=== PATIENT | female | born 1970 | race Asian ===

== ENCOUNTER 2018-12-06 10:23 | Day surgery (SDC) | payer OTHER ==
[2018-11-30 10:33] VITALS: BMI 24.0
--- NOTE | 2018-11-30 16:24 | HP ---
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 She has had mutiple left breast bxs showing papillomas.2012 , fibroadenoma 2013 and PASH 2017. She was found to have central enhancement in left breast on MRI 07/2018 and underwent 2 MRI core bxs showing central LCIS and 2:00 papilloma and ADH History Source: Patient Limitations to Obtaining History: No Limitations - Past Medical History ...LMP: 10/31/18 ...: No Endocrine: Yes: Diabetes Mellitus (type 1 on insulin pump), Other (Hashimotos thyroiditis) - Past Surgical History Past Surgical History: Yes: Mastectomy (right 1987 at age 16 for sarcoma reconstruction implant 2003 mutiple left breast bxs papillomas and fibroadenoma) - Smoking History Smoking history: Never smoked Have you smoked in the past 12 months: No - Alcohol/Substance Use Hx Alcohol Use: Yes (SOCIALLY) Home Medications - Allergies Allergies/Adverse Reactions: Allergies Allergy/AdvReac Type Severity Reaction Status Date / Time No Known Allergies Allergy Verified 11/30/18 10:17 - Home Medications Home Medications: Ambulatory Orders Insulin Pump [Insulin Pump - (Nf)] 1 each IV DAILY 11/30/18 Levothyroxine [Synthroid -] 75 mcg PO DAILY 11/30/18 Loratadine [Claritin] 10 mg PO DAILY PRN 11/30/18 Losartan Potassium 25 mg PO DAILY 11/30/18 Family Disease History - Family Disease History Family Disease History: CA: Grandparent (mat GM pancreatic ca 86) Other Family History: pat aunt CRC 60's. mat aunt breast ca 49. mat uncle one with renal cell and the other leukemia Physical Examination Constitutional: Yes: Well Nourished Breast(s): Yes: Other ( obvious right mastectomy with nipple reconstruction and scarring no recurrence or denopathy, left breast nodularity and recent scarring from core bxs. 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
[2018-12-06] MEDS ORDERED: ACETAMINOPHEN 325 MG TABLET (FP) PO PRN (15:37)
[2018-12-06] MEDS ORDERED: ONDANSETRON 4 MG/2 ML VIAL IVPUSH PRN ×2 (15:37→17:13)
[2018-12-06] MEDS ORDERED: oxyCODONE HCL 5 MG TABLET PO PRN (15:37)
[2018-12-06] MEDS ORDERED: LACTATED RINGERS SOLUTION 1,000 ML IV SCH (15:45)
[2018-12-06] MEDS ORDERED: ceFAZolin SODIUM 1 GM VIAL ONE (15:59)
[2018-12-06] MEDS ORDERED: DEXAMETHASONE SOD PHOSPHATE 4 MG/1 ML VIAL ONE (16:10)
[2018-12-06] MEDS ORDERED: ONDANSETRON 4 MG/2 ML VIAL ONE (16:10)
[2018-12-06] MEDS ORDERED: BUPIVACAINE HCL 0.25% 125 MG/50 ML VIAL ONE (16:38)
[2018-12-06] MEDS ORDERED: GUM MASTIC/STORAX/MSAL/ALCOHOL 1 DRP DROPSBTL MC ONE (16:50)
[2018-12-06] MEDS ORDERED: BUPIVACAINE HCL/PF 0.25% (2.5MG/ML) 10 ML VIAL IJ ONE (16:58)
[2018-12-06] MEDS ORDERED: KETOROLAC TROMETHAMINE 30 MG/1 ML VIAL IVPUSH PRN (17:13)
[2018-12-06] MEDS ORDERED: DEXTROSE 5%-0.45% SALINE 1,000 ML IV SCH (17:15)
[2018-12-06] MEDS ORDERED: KETOROLAC TROMETHAMINE 30 MG/1 ML VIAL ONE (17:40)
[2018-12-06 18:13] VITALS: TEMP 98.1
[2018-12-06 18:59] VITALS: BP 140/76; PULSE 78
--- NOTE | 2018-12-06 19:18 | OP ---
DATE OF OPERATION: 12/06/2018 PREOPERATIVE DIAGNOSIS: Left breast central lobular carcinoma in situ and upper outer quadrant atypical duct hyperplasia. POSTOPERATIVE DIAGNOSIS: Left breast central lobular carcinoma in situ and upper outer quadrant atypical duct hyperplasia. Await permanent section. PROCEDURE: Excisional biopsy with needle localizations x2 in the left breast central and upper outer quadrants. ANESTHESIA: General laryngeal mask airway anesthesia. PRIMARY SURGEON: Brigid Landers MD ALTERNATIVE DISPUTE RESOLUTION MEDIATOR: DAVEY Payne There were no complications. Briefly, the patient is a 48-year-old, nulliparous, premenopausal female of [place] descent with a family history with a maternal aunt who had breast cancer in her 40s. She has a maternal grandmother who had pancreatic cancer and at age 86, maternal uncle from renal cell carcinoma, and another maternal uncle from leukemia. The patient herself developed a right chest wall sarcoma at age 16, requiring a mastectomy and later had back sizer and implant reconstruction in 2003. She has had multiple left breast biopsies for fibrocystic change and has had papillomatosis, fibroadenomas, pseudoangiomatous stromal hyperplasia. She most recently had an MRI and underwent MRI-guided core biopsies at [facility] on October 18, 2018, for a left breast central and 2 o'clock region of enhancement and the central biopsy showed LCIS, the upper outer quadrant area showed a papilloma with atypia. We had the slides reviewed, which confirmed the diagnosis. The patient came in for consultation and wants to undergo prophylactic nipple-sparing mastectomy on the left side. I spoke to the patient at length and, given this recent diagnosis of LCIS and atypia, I advised excision of these areas prior to any prophylactic surgery to prevent any unnecessary marlon evaluation. The patient agreed and comes in today for the left breast excisional biopsies. The patient was brought in through ambulatory surgery on December 06, 2018, and underwent needle localizations of the Infinity as well as hourglass clip in the left breast. She was brought to the holding area. In the holding area, site verification was made and informed consent was obtained. She was brought in to the operating room and laid on the OR table in a supine position. Venodynes were placed on the lower extremities prior to induction. She received general laryngeal mask airway anesthesia. She was given 1 g of Ancef prior to incision. The left breast was sterilely prepped and draped in the usual fashion. Timeout was performed. Incision was made around the periareolar region of the left breast nipple-areolar complex. Dissection was undertaken around the needle localization centrally in the left breast and the tissue was completely excised around this lesion, taking more tissue towards the lateral and upper aspect to get the hourglass clip within the same excision specimen. The specimen was oriented with a long lateral and short superior suture and specimen radiograph showed removal of the Infinity and hourglass clip. At this point, the separate needle localization towards the upper outer aspect was excised with the S-shaped clip, which had been localized and this tissue was removed with a wire in the middle of the specimen and again specimen radiograph showed removal of the S clip and the specimen was oriented with a long lateral and short superior suture and the specimen was placed in formalin, sent to Pathology. Hemostasis was achieved using electrocautery. The breast parenchyma was reapproximated using 2-0 plain suture. The skin was closed using interrupted 3-0 deep dermal Vicryl suture and a running 4-0 subcuticular Biosyn suture. Mastisol, Steri-Strips applied over the wound with a compressive dressing placed over this. She was placed in a surgical bra postoperatively. The patient had the laryngeal mask airway tube removed at the end of the case, was brought to the post-anesthesia care in stable condition. She will be recovered and discharged home the same day. All sponge and needle counts were correct at the end of the case. Estimated blood loss was minimal. BRIGID LANDERS M.D. [id number]
--- NOTE | 2018-12-12 14:51 | PATH ---
Surgical Pathology Report Patient Name: KATHY VASQUEZ [facility]. Rec. #: [id number] /Age/Gender: 1970 (Age: 48) / F Account: [id number] Location[facility] Taken: 12/06/2018 Received: 12/06/2018 Reported: 12/12/2018 Physicians: Durga Landers M.D. Specimen(s) Received A: LEFT BREAST CENTRAL EXCISION B: LEFT BREAST 1:00 EXCISION Clinical History Previous core biopsies: Central-LCIS, 1:00-ADH Final Diagnosis A. Breast, left, Central, excision: Ductal carcinoma in situ (DCIS), micropapillary, papillary, flat and cribriform type, high nuclear grade with moderate necrosis and associated calcifications. (See note). DCIS is present in four of nine slides (4/9), with the largest contiguous focus of DCIS measuring 9 mm in greatest dimension. DCIS extends to the superior margin. Lobular carcinoma in situ (LCIS), classical type. Extensive sclerosing adenosis, involved by DCIS and LCIS. Remaining breast tissue shows INTRADUCTAL PAPILLOMA, atypical ductal hyperplasia (ADH), flat Epithelial atypia (FEA), usual ductal hyperplasia (UDH), columnar cell change, cystic apocrine metaplasia and associated calcifications. Prior biopsy site changes are present. Pathologic stage (pTNM):ptis (Dcis) pNx. see also DCIS case summary below. Note: Immunostains performed at [facility] show the following results: E-Cadherin immunostains (blocks A2 & A5) demonstrate positivity in the foci of DCIS involving sclerosing adenosis, while foci of LCIS involving sclerosing adenosis are negative. Myoepithelial immunohistochemical markers (SMM-HC & p63) demonstrate the presence of myoepithelial cells in the foci of sclerosing adenosis involved by DCIS and LCIS. These findings support the diagnosis. Prior left breast biopsies from outside institution are noted ([id number], [id number]; our slide review case # [id number]). Case discussed with Dr. Landers on 12/12/18. B. breast, left, 1:00, excision: Focal atypical ductal hyperplasia (ADH),FOCAL ATYPICAL LOBULAR HYPERPLASIA (ALH), usual ductal hyperplasia (UDH), cystIC apocrine metaplasia, columnar cell change and few associated calcifications. Focal prior biopsy site changes are identified. Comments DCIS of the Breast: Surgical Pathology Cancer Case Summary (Based on AJCC TNM 8 th edition) Procedure _X_ Excision (less than total mastectomy) Specimen Laterality _X_ Left Size (Extent) of DCIS Estimated size (extent) of DCIS (greatest dimension using microscopic evaluation): at least (millimeters) 9 mm Number of blocks with DCIS: 4 Number of blocks examined: 9 Note: The size (extent) of DCIS is an estimation of the volume of breast tissue occupied by DCIS. Histologic Type _X_ Ductal carcinoma in situ Architectural Patterns _X_ Cribriform _X_ Micropapillary _X_ Papillary Nuclear Grade _X_ Grade III (high) Necrosis _X_ Present, moderate Margins _X_ Positive for DCIS Specify margin(s): superior Regional Lymph Nodes _X_ No lymph nodes submitted or found Pathologic Stage Classification (pTNM, AJCC 8th Edition) Primary Tumor (pT) _X_ pTis (DCIS): Ductal carcinoma in situ Regional Lymph Nodes (pN) _X__ pNx Microcalcifications _X_ Present in DCIS _X_ Present in nonneoplastic tissue Biomarker Studies Results of ER and KY studies performed on this specimen (block A2) at [facility] are as follows: ER (clone [id number] mouse monoclonal antibody by Leica): 0 % nuclear staining (negative). KY (clone16 mouse monoclonal antibody by Leica): 0 % nuclear staining (negative). Positive and negative controls (internal if applicable) show appropriate results. Formalin fixation and cold ischemic times are within current ASCO/CAP recommendations for ER, KY and Her2 testing. Electronically Signed Lizy Subramanian M.D. Gross Description A. Received in formalin, labeled "left breast central excision" is a 3.5 x 2.5 x 2 cm portion of fibrofatty tissue. A long suture designates the lateral margin and a short suture indicates the superior margin, per the surgeon. The specimen is inked as follows: superior blue, inferior green, anterior red, posterior black, medial yellow, lateral orange. Sectioning reveals dense, fibrous tissue with a central hemorrhagic focus consistent with prior biopsy site. The specimen is entirely submitted in nine cassettes as follows: 1-7-central tissue with anterior, posterior, superior and inferior margins; 7,8- medial margin; 9-lateral margin. B. Received in formalin, labeled "left breast 1:00 excision" is a 4 x 2.5 x 2 cm portion of fibrofatty tissue with a localizing needle in place. A long suture designates the lateral margin and a short suture indicates the superior margin, per the surgeon. The specimen is inked as follows: superior blue, inferior green, anterior red, posterior black, medial yellow, lateral orange. Sectioning reveals dense fibrous tissue. Entirely submitted in eight cassettes as follows: 1-5-central tissue with superior, inferior, anterior and posterior margins; 6,7-medial margin; 8-lateral margin. Time to formalin fixation: 3 minutes Total formalin fixation time: approximately 28 hours AE/12/11/2018 ebram/12/11/2018
== END 2018-12-06 18:55 | disposition home or self-care (01) ==
LOC: FASU 10:23
PROVIDERS: ATTEND Surgery Surgical Oncology
PROC: 0HBU0ZX Excision of Left Breast, Open Approach, Diagnostic (ICD-10-PCS; principal; 2018-12-06 16:04)
DX: D05.02 Lobular carcinoma in situ of left breast (principal); N60.92 Unspecified benign mammary dysplasia of left breast; Z80.3 Family history of malignant neoplasm of breast; E10.9 Type 1 diabetes mellitus without complications; Z96.41 Presence of insulin pump (external) (internal); E06.3 Autoimmune thyroiditis; Z90.11 Acquired absence of right breast and nipple
CPT/HCPCS: 19281; 19282; 82962; 84703; 88307-TC; 88341-TC; 88342-TC; 94760

== ENCOUNTER 2019-01-31 08:00 | Inpatient (IN) | payer OTHER ==
[2019-01-23 16:29] VITALS: BMI 22.8
--- NOTE | 2019-01-28 14:46 | HP ---
Admitting History and Physical - Primary Care Physician PCP: Durga Landers - Admission Chief Complaint: Left breast cancer History of Present Illness: 48 year old premenapausal nulliparous femlae with H/O right chest wass sarcoma at age 16 S/P mastectomy. Screening mammogram showed left abnormality. She has had mutiple left breast biopsies showing papillomas ,fibroadenomas and PASH. The most recent MRI core bxs 09/2018 showed LCIS in the central core and a papilloma and atypia in the left 2:00 MRI core bx. She underwent left breast excision 12/06 2018 Pathology: central excision showed DCIS and LCIS ER/RI- and left 1:00 excision showed ADH. History Source: Patient Limitations to Obtaining History: No Limitations - Past Medical History ...LMP: 01/23/19 Endocrine: Yes: Diabetes Mellitus (type 1 on insulin pump), Hypothyroidism (H/O hashimotos), Other (Hashimotos thyroiditis) - Past Surgical History Past Surgical History: Yes: Mastectomy (right 1987 at age 16 for sarcoma reconstruction implant 2004 mutiple left breast bxs papillomas and fibroadenoma, most recent left breast excision showedDCIS with LCIS and atypia) - Smoking History Smoking history: Never smoked Have you smoked in the past 12 months: No - Alcohol/Substance Use Hx Alcohol Use: No Home Medications - Allergies Allergies/Adverse Reactions: Allergies Allergy/AdvReac Type Severity Reaction Status Date / Time No Known Allergies Allergy Verified 01/23/19 16:24 - Home Medications Home Medications: Ambulatory Orders Insulin Pump [Insulin Pump - (Nf)] 1 each SQ DAILY 11/30/18 Levothyroxine [Synthroid -] 75 mcg PO DAILY 11/30/18 Loratadine [Claritin] 10 mg PO DAILY PRN 11/30/18 Losartan Potassium 25 mg PO HS 11/30/18 Family Medical History Other Family History: maternal GM pancreatic ca 86 . mat aunt br 49 east ca. mat uncle leukemia and another with renal cnacer. pat aunt CRC 60-70 Physical Examination Constitutional: Yes: No Distress Breast(s): Yes: Other ( Right mastectomywith implant reconstruction with some scarring in nipple reconstruction , no recurrence of sarcoma. Left breast A cup nodularity with some scqarring from prior mutiple biopsies, no masses or adenopathy palpated) Problem List - Problems (1) Ductal carcinoma in situ (DCIS) of left breast Code(s): D05.12 - INTRADUCTAL CARCINOMA IN SITU OF LEFT BREAST Assessment/Plan Left breast total mastectomy, sentenel node biopsy ,lymphoscintogram, possibe axillary node dissection ,implant and alloderm
[2019-01-31] MEDS ORDERED: SODIUM CHLORIDE 0.9% P/F 10 ML VIAL IJ ONE (09:25)
[2019-01-31] MEDS ORDERED: BUPIVACAINE LIPOSOME/PF (EXPAREL) 266 MG/20 ML VIAL ONE (09:25)
[2019-01-31] MEDS ORDERED: BUPIVACAINE HCL/PF 2.5 MG/ML - 30 ML VIAL IJ ONE (09:27)
[2019-01-31] MEDS ORDERED: EPINEPHrine/PF 1 MG/1 ML (1:1,000) AMPULE ONE (09:29)
[2019-01-31] MEDS ORDERED: LIDOCAINE HCL 1% PRESERVATIVE FREE - 30ML VIAL ONE (09:29)
[2019-01-31] MEDS ORDERED: GENTAMICIN SO4 80 MG/2 ML VIAL ONE (09:30)
[2019-01-31] MEDS ORDERED: ceFAZolin SODIUM 1 GM VIAL ONE ×2 (09:30→13:21)
[2019-01-31] MEDS ORDERED: ONDANSETRON 4 MG/2 ML VIAL IVPUSH PRN ×2 (10:10→14:07)
[2019-01-31] MEDS ORDERED: oxyCODONE HCL 5 MG TABLET PO PRN ×4 (10:10→14:07)
[2019-01-31] MEDS ORDERED: DEXTROSE 5%-0.45% SALINE 1,000 ML IV SCH (10:15)
[2019-01-31] MEDS ORDERED: LIDOCAINE 1%/EPI 1:100000 (20 ML MULTI DOSE VIAL) ONE (10:25)
[2019-01-31] MEDS ORDERED: PROPOFOL 20 ML ONE ×4 (10:30)
[2019-01-31] MEDS ORDERED: SUCCINYLCHOLINE CHLORIDE 200 MG/10 ML SYRINGE ONE (10:30)
[2019-01-31] MEDS ORDERED: ROCURONIUM BROMIDE 50 MG/5 ML SYRINGE ONE ×2 (10:30→12:45)
[2019-01-31] MEDS ORDERED: fentaNYL CITRATE 250 MCG/5 ML VIAL ONE (10:30)
[2019-01-31] MEDS ORDERED: MIDAZOLAM HCL 2 MG/2 ML SINGLE DOSE VIAL ONE (10:31)
[2019-01-31] MEDS ORDERED: NEOSTIGMINE METHYLSULFATE 0.5 MG/ML - 10 ML MDV ONE (13:20)
[2019-01-31] MEDS ORDERED: ONDANSETRON 4 MG/2 ML VIAL ONE (13:21)
[2019-01-31] MEDS ORDERED: DEXAMETHASONE SOD PHOSPHATE 4 MG/1 ML VIAL ONE (13:21)
[2019-01-31] MEDS ORDERED: GLYCOPYRROLATE 0.2 MG/1 ML VIAL ONE (13:21)
[2019-01-31] MEDS ORDERED: LIDOCAINE HCL 2% JELLY (5 ML/TUBE) ONE (13:21)
[2019-01-31] MEDS ORDERED: KETOROLAC TROMETHAMINE 30 MG/1 ML VIAL ONE (13:21)
[2019-01-31] MEDS ORDERED: LIDOCAINE HCL/PF 2% SDV 5ML VIAL ONE (13:21)
[2019-01-31] MEDS ORDERED: PROMETHAZINE HCL 25 MG/1 ML VIAL IVPUSH PRN (14:07)
--- NOTE | 2019-01-31 14:46 | OP ---
Operative Note - Note: Operative Date: 01/31/19 Pre-Operative Diagnosis: Left breast cancer Operation: Left mastectomy, sentinel lymph node biopsy, left brest reconstruction with alloderm and implant, right breast capsulotomy, implant exchange, and scar revision, subcutaneous tissue transfer from abdomen and flanks to right breast Findings: as dictated Implants: as dictated Post-Operative Diagnosis: Same as Pre-op Surgeon: Tremayne Mcmanus Underwriting Internship: Alfredo Campbell Anesthesiologist/LEAD HANDLER: Neil Ayers Anesthesia: General, Local (Exparel injected to left breats at completion of case) Specimens Removed: left axillary sentinel node 1&2, right breast implant, right breast mastectomy scar, left breast tissue, left breat retro areolar biopsy, left breat anterior lateral margin Estimated Blood Loss (mls): 100 (ml) Drains & Tubes with Location: 2 sapna drains left breast Fluid Volume Replaced (mls): 1 (L LR)
[2019-01-31] MEDS ORDERED: CEFAZOLIN 1 GM/D5W 1 GM/50 ML BAG IVPB SCH (15:00)
[2019-01-31] MEDS ORDERED: INSULIN PUMP SQ SCH ×2 (16:00)
[2019-01-31] MEDS: INSULIN SLIDING SCALE (NOVOLOG) 1 VIAL SQ SCH ×2 (16:43→21:46)
[2019-01-31] MEDS: CEFAZOLIN 1 GM/D5W 1 GM/50 ML BAG IVPB SCH ×2 (16:51→21:45)
[2019-01-31] MEDS ORDERED: SODIUM CHLORIDE 1,000 ML IV SCH (18:40)
--- NOTE | 2019-01-31 19:29 | OP ---
DATE OF OPERATION: 01/31/2019 PREOPERATIVE DIAGNOSIS: Left breast ductal carcinoma in situ with history of right breast mastectomy. POSTOPERATIVE DIAGNOSIS: Left breast ductal carcinoma in situ with history of right breast mastectomy. PROCEDURE: Left breast nipple-sparing mastectomy with left axillary sentinel lymph node biopsy and direct implant reconstruction by Dr. Mcmanus. ANESTHESIA: General anesthesia. PRIMARY SURGEON: Brigid German MD PRINT DEVELOPER AUTOMATIC: DAVEY Esposito Primary surgeon for the direct implant reconstruction with acellular dermal matrix is Dr. Brigid Mcmanus. There were no complications. Briefly, the patient is a 48-year-old nulliparous premenopausal female of [place] descent. She has a family history with her maternal aunt, who had breast cancer in her 40s, and her maternal grandmother from pancreatic cancer at age 86. She has a maternal uncle who had renal cell carcinoma in her 40s and another maternal uncle had leukemia. The patient has a personal history of a right chest wall sarcoma which occurred in her breast and she underwent a mastectomy by Dr. Kamari Bell at [facility]. 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 She has had multiple left breast biopsies for papillomas as well as pseudoangiomatous stromal hyperplasia. She recently underwent an MRI in September of 2018, again showing areas of enhancement and she underwent a central core biopsy as well as a 2 o'clock biopsy showing atypical duct hyperplasia and LCIS. She underwent an excision of these 2 areas on December 06, 2017, through a periareolar approach and she was found to have high-grade DCIS as well as atypical duct hyperplasia. There were positive margins and the DCIS was ER/MA negative. The patient was advised on undergoing a mastectomy and chose to have direct implant reconstruction. She was seen by Dr. Mcmanus preoperatively. She was brought in for the procedure on January 31, 2019. She first underwent a lymphoscintigraphy at [facility] with a periareolar injection of technetium 99, then was brought to the [place] holding area. In the holding area, site verification was made and informed consent was obtained. She was marked preoperatively by the plastic surgeon. She was then brought in to the operating room and laid on the OR table in a supine position. Venodynes were placed on the lower extremities prior to induction. She received 1 g of Ancef prior to incision. Both breasts were sterilely prepped and draped in the usual fashion as well as the abdomen, since she was getting liposuction fat grafting performed on the right side by Dr. Mcmanus with exchange of the implant at the same sitting. She had both breasts and abdominal wall sterilely prepped and draped and timeout was performed. She had general endotracheal anesthesia. The left breast sentinel lymph node biopsy was performed. No blue dye was injected, since we were doing a nipple-sparing approach. Incision was made just below the hair-bearing area of the left axilla and dissection was undertaken and 2 hot lymph nodes were found in the level 1 region of the left axilla. The 1st sentinel lymph node had a 10-second gamma count of 3422 and the 2nd sentinel lymph node had a 10-second gamma count of 704. Background counts after removal of these 2 nodes was 53. Frozen section of both of these nodes came back negative, so no further nodes were removed. At this point, a nipple-sparing mastectomy was performed on the left side as Dr. Mcmanus took out the textured implant on the right and exchanged the implant and did fat grafting on the right side. The left mastectomy was performed using separate instruments, and an inframammary incision was marked out about 8 cm in length. The skin edge was everted and the breast was retracted inferiorly using [place] clamps. The skin flap was raised using the PEAK radiofrequency device, superiorly to the level of the clavicle, medially to the level of the sternum, laterally to the level of the latissimus, and inferiorly below the level of the inframammary fold. The breast was taken down off the pectoralis major muscle from inferior medial to superior lateral and completely removed intact. It was oriented with a long lateral and short superior suture and weighted to allow for appropriate cosmetic result. It was sent for a specimen radiograph showing removal of all the prior clips which had been placed in the left breast, which included 6 separate clips. Skin flaps were trimmed for good cosmetic result and the retroareolar biopsy was sent to Pathology for frozen section and came back negative, so the nipple was spared. Hemostasis was achieved and the wound was copiously irrigated. At this point, Dr. Mcmanus became the primary surgeon and performed a direct implant reconstruction on the left side using acellular dermal matrix for the direct implant reconstruction. A Sreekanth drain will be placed around the left implant and brought through separate stab incisions on the lateral skin flap. All wounds will be closed separately by Plastic Surgery using dissolvable monofilament suture. Estimated blood loss was about 100 mL for the mastectomy and all sponge and needle counts were correct at this point in the case. The patient will be extubated and recovered postoperatively and admitted postoperatively for pain and wound management. We did use the SPY skin perfusion device during the case, showing excellent skin perfusion and nipple perfusion intraoperatively. BRIGID GERMAN M.D. [id number]
[2019-01-31] MEDS: LOSARTAN POTASSIUM 25 MG TABLET PO SCH (21:47)
[2019-01-31] MEDS ORDERED: ZOLPIDEM TARTRATE 5 MG TABLET PO PRN (22:00)
[2019-01-31] MEDS: ACETAMINOPHEN 325 MG TABLET (FP) PO PRN (23:40)
[2019-02-01] MEDS: CEFAZOLIN 1 GM/D5W 1 GM/50 ML BAG IVPB SCH ×4 (03:31→21:13)
[2019-02-01] MEDS: LEVOTHYROXINE NA 75 MCG TABLET (FP) PO SCH (06:58)
[2019-02-01] MEDS: INSULIN SLIDING SCALE (NOVOLOG) 1 VIAL SQ SCH ×3 (07:29→17:41)
[2019-02-01 08:11] LABS: HEMATOCRIT 24.8 % (32.4-45.2); HEMOGLOBIN 8.3 GM/dl (10.7-15.3); MCH 29.1 pg (25.7-33.7); MCHC 33.6 g/dl (32.0-36.0); MEAN CELL VOLUME 86.6 fl (80-96); MEAN PLT VOLUME 7.9 fl (7.5-11.1); PLATELET COUNT 281 K/MM3 (134-434); RBC 2.87 M/mm3 (3.60-5.2); RDW 12.6 % (11.6-15.6)
[2019-02-01] MEDS: HEPARIN NA (PORCINE) 5,000 UNITS/ML 1ML VIAL SQ SCH ×3 (08:11→21:13)
--- NOTE | 2019-02-01 08:13 | PN ---
Progress Note (short form) - Note Progress Note: POD 1, s/p Left mastectomy, sentinel lymph node biopsy, left breast reconstruction with alloderm and implant, right breast capsulotomy, implant exchange, and scar revision, subcutaneous tissue transfer from abdomen and flanks to right breast Pt seen and examined. Reports pain well controlled overnight. Had 1 episode of emesis when getting out of bed. Tolerated small amounts of food since with no further emesis. Has been oob to restroom voiding without issue. Denies cp/sob, calf pain. Vital Signs Temp 97.9 F 02/01/19 03:00 Pulse 77 02/01/19 03:00 Resp 18 02/01/19 03:00 BP 88/42 L 02/01/19 03:00 Pulse Ox 98 02/01/19 03:00 Intake & Output 01/31/19 01/31/19 02/01/19 11:59 23:59 11:59 Intake Total 950 1000 1450 Output Total 433 40 Balance 196 776 4521 Weight 121 lb Intake: IV 673 833 3905 D5-1/2Ns - 1,000 ml @ 100 300 mls/hr IV ASDIR DERRICK Rx#: [id number] Normal Saline - 1,000 ml 1100 @ 100 mls/hr IV ASDIR DERRICK Rx#:[id number] IVPB 150 100 Oral 400 250 Output: Drainage 133 40 Left breast #1 38 30 Left breast #2 60 10 Urine 300 Void 300 Other: Voiding Method Toilet Toilet Height 5 ft 1 in Body Mass Index (BMI) 22.8 Weight Measurement Method Standing Scale CBC, BMP 02/01/19 06:58 Gen: awake, alert, nad, mom at bedside Resp: Unlabored on RA Chest: Dressings/bra c/d/i, L breast with +ecchymosis/edema, + ttp, inframammary crease steristrips intact with no erythema or drainage, wound in axilla with steristrips intact, no erythema or drainage. R breast with minimal edema/ecchymosis, steristrips in place with no erythema or drainage. Jps in place, minimal serosanguinous drainage in reservoir, tubing stripped. Abdomen: soft, minimal edema, b/l lower abdominal incisions c/d/i with dermabond in place. No ecchymosis noted. 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
--- NOTE | 2019-02-01 10:16 | PN ---
Progress Note, Physician Chief Complaint: Left breast cancer S/P left total NS mastectomy implant alloderm reconstruction right capsulotomy implant exchange and SOBQ tissue transfer from abdomen and flanks to right breast POD #! History of Present Illness: patient vomited last night but better this am, eating. glucose was running in the 300's last night 1/2 NS D5 [address] Landers and .9%NS started, she is on an insulin sliding scale and we will resume her pump this afternoon. Glucose 178 at 6:41 am. On oxycodoen/tylenol/valium prn for pain - Current Medication List Current Medications: Active Medications Acetaminophen (Tylenol -) 650 mg PO Q4H PRN PRN Reason: FEVER Last Admin: 01/31/19 23:40 Dose: 650 mg Diazepam (Valium -) 5 mg PO Q8H PRN PRN Reason: WITHDRAWAL(CONT SUBST) Heparin Sodium (Porcine) (Heparin -) 5,000 unit SQ BID [facility] Last Admin: 02/01/19 09:24 Dose: Not Given Cefazolin Sodium (Ancef 1 Gm Premixed Ivpb -) 1 gm in 50 mls @ 100 mls/hr IVPB Q6H-IV DERRICK Stop: 02/07/19 14:59 Last Admin: 02/01/19 08:11 Dose: 100 mls/hr Sodium Chloride (Normal Saline -) 1,000 mls @ 100 mls/hr IV ASDIR [facility] Last Admin: 01/31/19 21:45 Dose: 100 mls/hr Insulin Aspart (Novolog Vial Sliding Scale -) 1 vial SQ ACHS [facility]; Protocol Last Admin: 02/01/19 07:29 Dose: 2 units Levothyroxine Sodium (Synthroid -) 75 mcg PO 0700 DERRICK Last Admin: 02/01/19 06:58 Dose: 75 mcg Losartan Potassium (Cozaar -) 25 mg PO HS [facility] Last Admin: 01/31/19 21:47 Dose: 25 mg Ondansetron HCl (Zofran Injection) 4 mg IVPUSH Q6H PRN PRN Reason: NAUSEA AND/OR VOMITING Last Admin: 01/31/19 18:16 Dose: 4 mg Oxycodone HCl (Roxicodone -) 5 mg PO Q4H PRN PRN Reason: PAIN LEVEL 1-5 Oxycodone HCl (Roxicodone -) 10 mg PO Q4H PRN PRN Reason: PAIN LEVEL 6-10 Promethazine HCl (Phenergan Injection -) 12.5 mg IVPUSH Q6H PRN PRN Reason: NAUSEA-FOR RESCUE AFTER 15 MIN Zolpidem Tartrate (Ambien -) 5 mg PO HS PRN PRN Reason: Insomnia - Objective Vital Signs: Vital Signs Temperature 97.9 F 02/01/19 03:00 Pulse Rate 77 02/01/19 03:00 Respiratory Rate 18 02/01/19 08:39 Blood Pressure 88/42 L 02/01/19 03:00 O2 Sat by Pulse Oximetry (%) 98 02/01/19 08:39 Constitutional: Yes: No Distress Breast(s): Yes: Other (Bilateral breast flaps viable lateral echymosis, no infection or expanding hematoma,incision intact with steristrips sapna drains functioning well) Labs: CBC, BMP 02/01/19 06:58 Problem List - Problems (1) Ductal carcinoma in situ (DCIS) of left breast Code(s): D05.12 - INTRADUCTAL CARCINOMA IN SITU OF LEFT BREAST Assessment/Plan Iv antibiotics SCD SQ heparin spirometry Valium/oxycodone/tylenol prn pain insulin sliding scale monitor blood sugar Will resume her pump this afternoon consult with Nataliia Blair,hospitalist for glucose control and initiating insulin pump sliding scaled 8 units given for 370 glucose level
--- NOTE | 2019-02-01 10:57 | CONSULT ---
Consultation: REQUESTING PROVIDER: Dr. Durga Landers CONSULT REQUEST: We have been asked to medically evaluate this patient post- operatively for diabetes management and transition back to her insulin pump. HISTORY OF PRESENT ILLNESS: This is a 48 year-old female with a PMH significant for Type I IDDM, Hashimotos hypothyroidism, right breast sarcoma s/p right mastectomy age 16, DCIS of left breast s/p left mastectomy and right breast capsulotomy and implant exchange on 01/31/19. Patient has been off her insulin pump since prior to surgery. REVIEW OF SYSTEMS: CONSTITUTIONAL: Absent: fever, chills, diaphoresis, generalized weakness, malaise, loss of appetite, weight change HEENT: Absent: rhinorrhea, nasal congestion, throat pain, throat swelling, difficulty swallowing, mouth swelling, ear pain, eye pain, visual changes CARDIOVASCULAR: Absent: chest pain, syncope, palpitations, irregular heart rate, lightheadedness , peripheral edema RESPIRATORY: Absent: cough, shortness of breath, dyspnea with exertion, orthopnea, wheezing, stridor, hemoptysis GASTROINTESTINAL: Absent: abdominal pain, abdominal distension, nausea, vomiting, diarrhea, constipation, melena, hematochezia GENITOURINARY: Absent: dysuria, frequency, urgency, hesitancy, hematuria, flank pain, genital pain MUSCULOSKELETAL: Absent: myalgia, arthralgia, joint swelling, back pain, neck pain SKIN: Absent: rash, itching, pallor HEMATOLOGIC/IMMUNOLOGIC: Absent: easy bleeding, easy bruising, lymphadenopathy, frequent infections ENDOCRINE: Absent: unexplained weight gain, unexplained weight loss, heat intolerance, cold intolerance NEUROLOGIC: Absent: headache, focal weakness or paresthesias, dizziness, unsteady gait, seizure, mental status changes, bladder or bowel incontinence PSYCHIATRIC: Absent: anxiety, depression, suicidal or homicidal ideation, hallucinations. PHYSICAL EXAMINATION Vital Signs - 24 hr 01/31/19 01/31/19 01/31/19 13:51 13:55 14:00 Temperature 97.6 F 97.6 F 97.6 F Pulse Rate 76 78 72 Respiratory 16 16 16 Rate Blood Pressure 109/61 97/37 L 117/63 O2 Sat by Pulse 100 100 100 Oximetry (%) 01/31/19 01/31/19 01/31/19 14:05 14:20 14:35 Temperature 97.6 F 97.6 F 97.6 F Pulse Rate 68 74 69 Respiratory 16 18 20 Rate Blood Pressure 144/71 142/69 148/72 O2 Sat by Pulse 100 100 100 Oximetry (%) 01/31/19 01/31/19 01/31/19 14:50 15:05 15:10 Temperature 97.6 F 97.6 F 97.6 F Pulse Rate 69 75 75 Respiratory 20 16 16 Rate Blood Pressure 148/72 132/83 132/83 O2 Sat by Pulse 100 100 100 Oximetry (%) 01/31/19 01/31/19 01/31/19 15:30 19:00 21:00 Temperature 98.1 F 98.4 F Pulse Rate 75 79 Respiratory 16 18 18 Rate Blood Pressure 108/53 L 96/45 L O2 Sat by Pulse 100 97 95 Oximetry (%) 01/31/19 02/01/19 02/01/19 23:00 03:00 08:39 Temperature 98.1 F 97.9 F Pulse Rate 78 77 Respiratory 18 18 18 Rate Blood Pressure 96/47 L 88/42 L O2 Sat by Pulse 95 98 98 Oximetry (%) GENERAL: Awake, alert, and fully oriented, in no acute distress. HEAD: Normal with no signs of trauma. EYES: Pupils equal, round and reactive to light, extraocular movements intact, sclera anicteric, conjunctiva clear. No lid lag. EARS, NOSE, THROAT: Ears normal, nares patent, oropharynx clear without exudates. Moist mucous membranes. NECK: Normal range of motion, supple without lymphadenopathy, JVD, or masses. LUNGS: Breath sounds equal, clear to auscultation bilaterally. No wheezes, and no crackles. No accessory muscle use. HEART: Regular rate and rhythm, normal S1 and S2 without murmur, rub or gallop. ABDOMEN: Soft, nontender, not distended, normoactive bowel sounds, no guarding, no rebound, no masses. No hepatomegaly or splenomegaly. MUSCULOSKELETAL: Normal range of motion at all joints. No bony deformities or tenderness. No CVA tenderness. UPPER EXTREMITIES: 2+ pulses, warm, well-perfused. No cyanosis. No clubbing. Cap refill <2 seconds. No peripheral edema. LOWER EXTREMITIES: 2+ pulses, warm, well-perfused. No calf tenderness. No peripheral edema. NEUROLOGICAL: Cranial nerves II-XII intact. Normal speech. Normal gait. PSYCHIATRIC: Cooperative. Good eye contact. Appropriate mood and affect. SKIN: Warm, dry, normal turgor, no rashes or lesions noted. Laboratory Results - last 24 hr 01/31/19 01/31/19 01/31/19 13:53 16:34 16:36 WBC RBC Hgb Hct MCV MCH MCHC RDW Plt Count MPV POC Glucometer 162 329 335 01/31/19 02/01/19 02/01/19 21:43 06:41 06:58 WBC 8.0 RBC 2.87 L Hgb 8.3 L Hct 24.8 L MCV 86.6 MCH 29.1 MCHC 33.6 RDW 12.6 Plt Count 281 MPV 7.9 POC Glucometer 323 178 02/01/19 10:25 WBC RBC Hgb Hct MCV MCH MCHC RDW Plt Count MPV POC Glucometer 371 Active Medications Generic Name Dose Route Start Last Admin Trade Name Freq PRN Reason Stop Dose Admin Acetaminophen 650 mg 01/31/19 10:10 01/31/19 23:40 Tylenol - PO 650 mg Q4H PRN Administration FEVER Diazepam 5 mg 01/31/19 15:02 Valium - PO Q8H PRN WITHDRAWAL(CONT SUBST) Heparin Sodium (Porcine) 5,000 unit 02/01/19 08:00 02/01/19 09:24 Heparin - SQ Not Given BID DERRICK Cefazolin Sodium 1 gm in 50 mls @ 100 mls/hr 01/31/19 15:00 02/01/19 08:11 Ancef 1 Gm Premixed Ivpb - IVPB 02/07/19 14:59 100 mls/hr Q6H-IV DERRICK Administration Sodium Chloride 1,000 mls @ 100 mls/hr 01/31/19 18:40 01/31/19 21:45 Normal Saline - IV 100 mls/hr ASDIR DERRICK Administration Insulin Aspart 1 vial 02/01/19 10:31 Novolog Vial Sliding Scale - SQ ACHS DERRICK Protocol Levothyroxine Sodium 75 mcg 02/01/19 07:00 02/01/19 06:58 Synthroid - PO 75 mcg 0700 DERRICK Administration Losartan Potassium 25 mg 01/31/19 22:00 01/31/19 21:47 Cozaar - PO 25 mg HS DERRICK Administration Ondansetron HCl 4 mg 01/31/19 10:10 01/31/19 18:16 Zofran Injection IVPUSH 4 mg Q6H PRN Administration NAUSEA AND/OR VOMITING Oxycodone HCl 5 mg 01/31/19 10:10 Roxicodone - PO Q4H PRN PAIN LEVEL 1-5 Oxycodone HCl 10 mg 01/31/19 10:10 Roxicodone - PO Q4H PRN PAIN LEVEL 6-10 Promethazine HCl 12.5 mg 01/31/19 14:07 Phenergan Injection - IVPUSH Q6H PRN NAUSEA-FOR RESCUE AFTER 15 MIN Zolpidem Tartrate 5 mg 01/31/19 22:00 Ambien - PO HS PRN Insomnia Endocrinoloigst Dr. Feng Fraser, [facility], [place] [phone], cell [phone]; complaint investigations officer Cherelle ASSESSMENT/PLAN: This is a 48 year-old female with a PMH significant for Type I IDDM, Hashimotos hypothyroidism, right breast sarcoma s/p right mastectomy age 16, DCIS of left breast s/p left mastectomy and right breast capsulotomy and implant exchange on 01/31/19. Patient has been off her insulin pump since prior to surgery. Type I IDDM --patient discontinued Novolog insulin pump on evening of 01/30 and took 15U long acting insulin --went to OR on 01/31 --today is POD #1 --after discussion with Dr. Fraser, patient reconnected her insulin pump at 4 :15pm --we will continue to monitor, defer to patient's wishes regarding self- fingersticking or using continuous sensor, or have nursing staff fingerstick --Novolog sliding scale coverage PRN Dispo: We will continue to follow the patient regarding her diabetes management until discharge. Thank you for this consultative opportunity. Visit type - Emergency Visit Emergency Visit: No - New Patient This patient is new to me today: Yes Date on this admission: 02/01/19 - Critical Care Critical Care patient: No
--- NOTE | 2019-02-01 12:04 | PN ---
Progress Note (short form) - Note Progress Note: ANESTHESIA POSTOP 48 yo POD#1 s/p mastectomy, breast reconstruction, GETA Sitting in bed. Tolerating PO. Pain adequately controlled. VSS, Afebrile Encouraged IS and ambulation. No anesthetic complications
[2019-02-01] MEDS: ACETAMINOPHEN 325 MG TABLET (FP) PO PRN ×2 (12:30→21:13)
[2019-02-01] MEDS: diazePAM 5 MG TABLET PO PRN ×2 (14:29→21:12)
[2019-02-01] MEDS: LOSARTAN POTASSIUM 25 MG TABLET PO SCH (21:13)
[2019-02-02] MEDS: CEFAZOLIN 1 GM/D5W 1 GM/50 ML BAG IVPB SCH ×3 (03:35→14:07)
[2019-02-02] MEDS: ACETAMINOPHEN 325 MG TABLET (FP) PO PRN ×2 (06:31→12:59)
[2019-02-02] MEDS: LEVOTHYROXINE NA 75 MCG TABLET (FP) PO SCH (06:31)
[2019-02-02] MEDS: INSULIN SLIDING SCALE (NOVOLOG) 1 VIAL SQ SCH (06:38)
--- NOTE | 2019-02-02 08:03 | PN ---
Progress Note, Physician Chief Complaint: We have been asked to medically evaluate this patient post-operatively by Dr Landers for diabetes management and transition back to her insulin pump. POD #2 Left mastectomy, sentinel lymph node biopsy, left breast reconstruction with alloderm and implant, right breast capsulotomy, implant exchange, and scar revision, subcutaneous tissue transfer from abdomen and flanks to right breast No complaints offered History of Present Illness: This is a 48 year-old female with a PMH significant for Type I IDDM, Hashimotos hypothyroidism, right breast sarcoma s/p right mastectomy age 16, DCIS of left breast s/p left mastectomy and right breast capsulotomy and implant exchange on 01/31/19. Patient has been off her insulin pump since prior to surgery. Endocrinoloigst Dr. Feng Fraser, [facility] [phone], cell [phone]; medical office technology instructor Cherelle - Current Medication List Current Medications: Active Medications Acetaminophen (Tylenol -) 650 mg PO Q4H PRN PRN Reason: FEVER Last Admin: 02/02/19 06:31 Dose: 650 mg Diazepam (Valium -) 5 mg PO Q8H PRN PRN Reason: WITHDRAWAL(CONT SUBST) Last Admin: 02/01/19 21:12 Dose: 5 mg Heparin Sodium (Porcine) (Heparin -) 5,000 unit SQ BID DERRICK Last Admin: 02/01/19 21:13 Dose: 5,000 unit Cefazolin Sodium (Ancef 1 Gm Premixed Ivpb -) 1 gm in 50 mls @ 100 mls/hr IVPB Q6H-IV DERRICK Stop: 02/07/19 14:59 Last Admin: 02/02/19 03:35 Dose: 100 mls/hr Sodium Chloride (Normal Saline -) 1,000 mls @ 100 mls/hr IV ASDIR DERRICK Last Admin: 01/31/19 21:45 Dose: 100 mls/hr Insulin Aspart (Novolog Vial Sliding Scale -) 1 vial SQ ACHS [facility]; Protocol Last Admin: 02/02/19 06:38 Dose: Not Given Levothyroxine Sodium (Synthroid -) 75 mcg PO 0700 DERRICK Last Admin: 02/02/19 06:31 Dose: 75 mcg Losartan Potassium (Cozaar -) 25 mg PO HS [facility] Last Admin: 02/01/19 21:13 Dose: 25 mg Ondansetron HCl (Zofran Injection) 4 mg IVPUSH Q6H PRN PRN Reason: NAUSEA AND/OR VOMITING Last Admin: 01/31/19 18:16 Dose: 4 mg Oxycodone HCl (Roxicodone -) 5 mg PO Q4H PRN PRN Reason: PAIN LEVEL 1-5 Oxycodone HCl (Roxicodone -) 10 mg PO Q4H PRN PRN Reason: PAIN LEVEL 6-10 Promethazine HCl (Phenergan Injection -) 12.5 mg IVPUSH Q6H PRN PRN Reason: NAUSEA-FOR RESCUE AFTER 15 MIN Zolpidem Tartrate (Ambien -) 5 mg PO HS PRN PRN Reason: Insomnia - Objective Vital Signs: Vital Signs Temperature 98.8 F 02/02/19 06:00 Pulse Rate 89 02/02/19 06:00 Respiratory Rate 18 02/02/19 06:00 Blood Pressure 107/51 L 02/02/19 06:00 O2 Sat by Pulse Oximetry (%) 95 02/02/19 06:00 Constitutional: Yes: Well Nourished, No Distress, Calm Eyes: Yes: WNL, Conjunctiva Clear, EOM Intact HENT: Yes: WNL, Atraumatic, Normocephalic Neck: Yes: WNL, Supple, Trachea Midline Cardiovascular: Yes: WNL, Regular Rate and Rhythm Respiratory: Yes: WNL, Regular, CTA Bilaterally Gastrointestinal: Yes: WNL, Normal Bowel Sounds, Other (Insu;claudio pump noted to right abd with sensor to left) ...Rectal Exam: Yes: Deferred Genitourinary: Yes: WNL Breast(s): Yes: Other ( L breast with +ecchymosis/edema, + ttp,) Musculoskeletal: Yes: WNL Extremities: Yes: WNL Edema: No Peripheral Pulses WNL: Yes Integumentary: Yes: WNL Wound/Incision: Yes: Clean/Dry, Other (PRUDENCE drain in place with sersang drainage) ...Motor Strength: WNL Psychiatric: Yes: WNL Labs: CBC, BMP 02/01/19 06:58 Problem List - Problems (1) Type I diabetes mellitus Assessment/Plan: BGM 151 Insulin pump and sensor in place pt managing pump and fingersticks BGM AC/qHS with novolog sliding scale c/w insulin pump Code(s): E10.9 - TYPE 1 DIABETES MELLITUS WITHOUT COMPLICATIONS (2) Roge's thyroiditis Assessment/Plan: c/w synthroid Code(s): E06.3 - AUTOIMMUNE THYROIDITIS (3) Insulin pump in place Code(s): Z96.41 - PRESENCE OF INSULIN PUMP (EXTERNAL) (INTERNAL) (4) Prophylactic measure Assessment/Plan: FEN c/w IVF monitor electrolytes and replete prn diabetic diet DVT heaproin sq Dispo: Maintain as in patient We will continue to follow the patient regarding her diabetes management until discharge Thank you for this consultative opportunity. Code(s): Z29.9 - ENCOUNTER FOR PROPHYLACTIC MEASURES, UNSPECIFIED (5) Ductal carcinoma in situ (DCIS) of left breast Assessment/Plan: POD #2 Left mastectomy care per surgical team Code(s): D05.12 - INTRADUCTAL CARCINOMA IN SITU OF LEFT BREAST Visit type - Emergency Visit Emergency Visit: No - New Patient This patient is new to me today: Yes Date on this admission: 02/02/19 - Critical Care Critical Care patient: No - Discharge Referral Referred to [facility] Med P.C[facility] No
[2019-02-02 09:15] LABS: CALCIUM 7.7 mg/dl (8.5-10); CREATININE 0.6 mg/dl (0.55-1.3); POTASSIUM 3.9 mmol/L (3.5-5.1)
[2019-02-02] MEDS: HEPARIN NA (PORCINE) 5,000 UNITS/ML 1ML VIAL SQ SCH (09:30)
[2019-02-02 12:26] VITALS: BP 129/67; PULSE 76; TEMP 99
--- NOTE | 2019-02-06 13:38 | PATH ---
Surgical Pathology Report Patient Name: KATHY VASQUEZ Med. Rec. #: [id number] /Age/Gender: 1970 (Age: 48) / F Account: [id number] Location: [facility] MED-SURG Taken: 01/31/2019 Received: 01/31/2019 Reported: 02/06/2019 Physicians: Durga Landers M.D. Specimen(s) Received A: LEFT AXILLARY SENTINEL NODE #1 (FS) B: LEFT AXILLARY SENTINEL NODE #2 ( FS ) C: LEFT RETRO AREOLAR BIOPSY (FS) D: RIGHT BREAST IMPLANT E: RIGHT BREAST MASTECTOMY SCAR F: LEFT BREAST G: LEFT BREAST ANTERIOR LATERAL MARGIN Clinical History Previous right mastectomy for sarcoma at age 16 Now with left breast DCIS Intraoperative Consult Diagnosis A. Left axillary sentinel node #1, frozen section: One negative lymph node (0/1). B. Left axillary sentinel node #2, frozen section: One negative lymph node (0/1). C. Left retroaortic, biopsy, frozen section: Negative for malignancy. Naun Latif 01/31/19 Final Diagnosis A. lymph node, left axillary sentinel #1, excision (FS): One lymph node, negative for metastatic carcinoma (0/1). B. lymph node, left axillary sentinel #2, excision: One lymph node, negative for metastatic carcinoma (0/1). C. Retroareola, left, biopsy (fS): Benign breast tissue; negative for malignancy. D. Implant, right breast, removal: Implant, as described (gross examination only). E. Scar, right breast, mastectomy: Skin with scar. F. breast, left, nipple-sparing mastectomy: breast tissue showING PRIOR BIOPSY CAVITY, lobular carcinoma in situ (LCIS; classical type) INVOLVING SCLEROSING ADENOSIS, atypical ductal hyperplasia (ADH), usual ductal hyperplasia (UDH), microcysts with apocrine metaplasia, columnar cell change, small fibroadenomas and associated calcifications. (SEE NOTE) NO RESIDUAL DUCTAL CARCINOMA IN SITU (DCIS) IS IDENTIFED. Pathologic stage (pTNM): pTis (dcis) pN0. (SEE NOTE) Note: E-Cadherin immunostain (performed on block F24 at [facility]) is negative in the foci of LCIS involving sclerosing adenosis, which supports lobular phenotype. The "pT" stage is based on presence of DCIS in prior left breast central excision ([id number]). G. breast, left, anterior lateral margin, excision: Benign breast tissue. Electronically Signed Lizy Subramanian M.D. Gross Description A. Received fresh for frozen section evaluation, labeled "left axillary sentinel node #1" is a 0.5 x 0.4 x 0.3 cm lymph node with attached fatty tissue. The lymph node is bisected and frozen section is performed on the lymph node. The frozen section residue is entirely submitted in one cassette. B. Received fresh for frozen section evaluation, labeled "left axillary sentinel node #2" is a 0.6 x 0.4 x 0.3 cm lymph node with attached fatty tissue. The lymph node is bisected and frozen section is performed on the lymph node. The frozen section residue is entirely submitted in one cassette. C. Received fresh for frozen section evaluation, labeled "left retroareolar biopsy" is a 1.2 x 1 x 0.2 cm portion of pink and red byrd soft tissue. Frozen section is performed on the specimen. The frozen section residue is entirely submitted in one cassette. 01/31/2019 D. Received without fixative, labeled "right breast implant" is a 12 x 10 x 2 cm, clear, intact breast implant. For gross examination only. E. Received in formalin, labeled "right breast, mastectomy scar" is a 5.2 x 0.6 cm portion of light byrd skin excised to a depth of 0.2 cm. A linear scar is noted on the surface of the skin. Concert Manager sections are submitted in one cassette. F. Received in formalin, labeled "left breast" is a 17.4 x 14.2 x 2.8 cm left breast mastectomy specimen. A long suture designates the lateral margin and a short suture indicates the superior margin, per the surgeon. There is no nipple or skin present. The anterior soft margin is inked blue and the deep margin is inked black. Sectioning reveals a focally hemorrhagic, biopsy cavity in the central aspect of the specimen with surrounding areas of dense fibrous to firm tissue. The fibrous to firm tissue abuts the anterior margin. No definitive masses are identified. The remainder of the breast parenchyma is comprised of adipose tissue with few white fibrous foci. Concert Manager sections are submitted in twenty-four cassettes as follows: 1-11-biopsy cavity with surrounding areas of fibrous to firm tissue, including anterior soft tissue and deep margins; 12-upper outer quadrant (UOQ); 13-lower outer quadrant (LOQ): 14-upper inner quadrant (UIQ); 15-lower inner quadrant (LIQ); 16-24- additional vendor representatives sections of fibrous/firm foci in central aspect. G. Received in formalin, labeled "left breast, anterior lateral margin" is a 4 x 1.6 x 0.6 cm portion of fibrofatty tissue with a suture marking the biopsy cavity, side, per the surgeon. The margin opposite the suture is inked black. The specimen is serially sectioned and entirely submitted in three cassettes. Time to formalin fixation: Not given; Total formalin fixation time: approximately 30 hours AE/02/01/2019 ebram/01/31/2019
--- NOTE | 2019-02-08 09:23 | OP ---
DATE OF OPERATION: 01/31/2019 SURGEON: Brigid Mcmanus MD LEAD PERFORMANCE SUPPORT ANALYST SURGEON: DAVEY Rivers PREOPERATIVE DIAGNOSIS: Bilateral acquired chest wall deformity, status post bilateral mastectomy. POSTOPERATIVE DIAGNOSIS: Bilateral acquired chest wall deformity, status post bilateral mastectomy. OPERATIVE PROCEDURE: 1. Left immediate breast reconstruction utilizing immediate insertion of silicone breast implant and AlloDerm reconstruction. 2. Delayed breast reconstruction utilizing other technique. 3. Capsulotomy, removal and replacement of right breast implant for symmetry. OPERATIVE INDICATION: The patient is a young woman, 48 years old, who is brought to the operating room by Dr. Brigid Landers for a left breast carcinoma and underwent a left mastectomy, which will be dictated under separate cover by Dr. Landers. 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 She now presents with gross asymmetry of the chest wall, a scarred nipple-areolar complex from failure, and required revision of the reconstructed breast on the right as well as an immediate breast reconstruction on the left. The risks and benefits of surgical versus nonsurgical alternatives, as well as material complications of the procedure were described to the patient on multiple occasions preoperatively, including today in the holding area, where she was marked in the standing position and the outline of the procedure was discussed again. All questions were asked and answered. OPERATIVE PROCEDURE IN DETAIL: The patient was taken to the operating room, and after induction of general anesthesia in supine position, both arms were extended and padded, Venodyne boots were placed, and attention was turned to the chest wall, which was prepped with ChloraPrep solution over its entire extent in 2 layers, and after timeout, the procedure began. Dr. Landers started on the left breast with his portion of the operation, which will be dictated under separate cover, and I began on the right chest wall. My procedure began by injecting the mastectomy scar, which was a high-riding scar above the scarred nipple-areolar complex, extending from the medial portion of the breast all the way out to the axilla. The mastectomy scar was injected with 1% local lidocaine anesthesia and then an excision of the scar itself along the lateral portion of the breast up to the midportion of the breast was excised and sent for pathologic diagnosis. I then began dissection with electrocautery down to the skin, to the subcutaneous tissue, and down to the underlying capsule. The capsule was then opened to perform a capsulotomy, and the implant, which had been placed many years ago, was removed and sent for pathologic diagnosis. This 230 mL, shaped, textured implant device was somewhat filled but not fully. At this point, the capsule was examined, capsulotomy performed superiorly along the superior portion of the breast, medial and inferiorly, elevating the capsule from some contracture. Once all the tissue was released, hemostasis was meticulously obtained. Triple-antibiotic solution and saline were copiously irrigated throughout the pocket. At this point, for the right breast, a new implant was chosen. Attention was then first turned to the lower abdomen and flanks. The patient, who was a juvenile diabetic, with insulin pump, had incisions planned in the right and left lower abdomen and incisions were made down through the skin to the subcutaneous tissue and then down deep into the area over the rectus and lateral oblique muscles. Tissue was harvested for reconstruction because of the gross asymmetry and previous chest wall sarcoma. This tissue was harvested from the lateral flank and abdominal area. It was transferred to the back table, washed, cleansed and prepared for reconstructive purposes. This tissue was then transferred to the breast on the superior, medial, and inferior portions of the breast and into the deep area around the capsule. At this point, a Sientra 300 mL smooth, round, high-profile implant was chosen for the reconstruction. This was placed into the pocket using both triple-antibiotic solution and Betadine over the entire pocket. Once this was inserted into place, the skin and subcutaneous tissue as well as the deep closure was carried out using 2-0 Vicryl sutures in the deepest tissue, the capsule and muscle of the pectoralis muscle was advanced and closed upon itself, covering the implant in multiple layers. A 4-layered closure was carried out using 2-0 Vicryl suture in the deep tissue, 2-0 in a subcutaneous fashion, 3-0 PDS in a deep dermal fashion, and a subcuticular suture with 3-0 V-Loc suture. At this point, Dr. Landers had finished the left breast. At this point, copious irrigation of the left breast pocket was carried out. A subpectoral dissection was then begun on the left breast by , elevating the pectoralis major muscle. Once the muscle was elevated, hemostasis again meticulously obtained and a sheet of AlloDerm measuring medium contour thickness, perforated, was brought in to the field. This was then sutured to the pectoralis major muscle superiorly with 3-0 Vicryl sutures, then around the lateral portion to create the fold laterally. Once this was accomplished, because of the differential in size, a Sientra smooth, round, high-profile 330 mL implant was placed into the breast pocket. The left breast tissue weighed 260 g. Once this was placed, good shape and contour was seen, with good symmetry in the opposite side. The wounds were closed in layers in the usual fashion using 3-0 PDS sutures on the deep dermis, two 15 Sreekanth drains were brought out through separate stab wounds into the axilla and around the pocket, and then the wound was closed in layers using 3-0 PDS suture on the deep dermis, 3-0 in a deep dermal fashion, and a 3-0 V-Loc suture in a subcuticular fashion. All wounds were dressed with Dermabond, Steri-Strips, and a compressive dressing. She tolerated the procedure well. She was awakened, extubated, and placed into a Surgi-Bra and then transferred to the recovery room in satisfactory condition. BRIGID MCMANUS M.D. [id number]
== END 2019-02-02 15:54 | disposition home or self-care (01) | DRG 581 ==
LOC: EDSTATUS 08:00 → FM/S 09:07 → EDSTATUS 09:30 → FM/S 15:15
PROVIDERS: ADMIT Plastic Surgery; ATTEND Surgery Surgical Oncology
PROC: 0HPT0JZ Removal of Synthetic Substitute from Right Breast, Open Approach (ICD-10-PCS; 2019-01-31)
PROC: 0HRT0JZ Replacement of Right Breast with Synthetic Substitute, Open Approach (ICD-10-PCS; 2019-01-31)
PROC: 0HTU0ZZ Resection of Left Breast, Open Approach (ICD-10-PCS; principal; 2019-01-31 11:02)
PROC: 07B60ZX Excision of Left Axillary Lymphatic, Open Approach, Diagnostic (ICD-10-PCS; 2019-01-31 11:02)
PROC: 0HUU0JZ Supplement Left Breast with Synthetic Substitute, Open Approach (ICD-10-PCS; 2019-01-31 11:02)
PROC: 0HNT0ZZ Release Right Breast, Open Approach (ICD-10-PCS; 2019-01-31 11:02)
DX: D05.12 Intraductal carcinoma in situ of left breast (principal); E10.9 Type 1 diabetes mellitus without complications; Z79.4 Long term (current) use of insulin; E06.3 Autoimmune thyroiditis; Z85.3 Personal history of malignant neoplasm of breast
CPT/HCPCS: 36415; 78195-TC; 80048; 82962; 84703; 85027; 88305-TC; 88307-TC; 88331-TC; 88342-TC; 94760; A9541; J1644; J7030

== ENCOUNTER 2020-12-03 08:36 | Day surgery (SDC) | payer BC ==
[2020-11-30 12:43] VITALS: BMI 22.6
[2020-12-03] MEDS ORDERED: BUPIVACAINE HCL/EPINEPHRINE/PF 30 ML VIAL IJ ONE (11:12)
[2020-12-03] MEDS ORDERED: LIDOCAINE HCL 1%, 10 MG/ML (20ML VIAL) ONE (11:12)
[2020-12-03] MEDS ORDERED: EPINEPHrine/PF 1 MG/1 ML (1:1,000) AMPULE ONE (11:12)
[2020-12-03] MEDS ORDERED: DEXAMETHASONE SOD PHOSPHATE 4 MG/1 ML VIAL ONE (11:31)
[2020-12-03] MEDS ORDERED: LIDOCAINE HCL 2% JELLY (5 ML/TUBE) ONE (11:31)
[2020-12-03] MEDS ORDERED: ONDANSETRON 4 MG/2 ML VIAL ONE (11:31)
[2020-12-03] MEDS ORDERED: KETOROLAC TROMETHAMINE 30 MG/1 ML VIAL ONE (11:31)
[2020-12-03] MEDS ORDERED: PROPOFOL 20 ML ONE (11:31)
[2020-12-03] MEDS ORDERED: LIDOCAINE HCL/PF 2% SDV 5ML VIAL ONE (11:31)
[2020-12-03] MEDS ORDERED: fentaNYL CITRATE 250 MCG/5 ML VIAL ONE (11:31)
[2020-12-03] MEDS ORDERED: MIDAZOLAM HCL 2 MG/2 ML SINGLE DOSE VIAL ONE (11:32)
[2020-12-03] MEDS ORDERED: ceFAZolin SODIUM 1 GM VIAL ONE (11:33)
[2020-12-03] MEDS ORDERED: ROCURONIUM BROMIDE 50 MG/5 ML SYRINGE ONE (11:42)
[2020-12-03] MEDS ORDERED: BUPIVACAINE 0.25% /EPI 1:200,000 10 ML VIAL INF ONE (12:27)
[2020-12-03] MEDS ORDERED: NEOSTIGMINE METHYLSULFATE 0.5 MG/1 ML - 10 ML MDV ONE (13:25)
[2020-12-03] MEDS ORDERED: GLYCOPYRROLATE 0.2 MG/1 ML VIAL ONE (13:28)
[2020-12-03] MEDS ORDERED: ONDANSETRON 4 MG/2 ML VIAL IVPUSH PRN ×2 (13:49→13:53)
[2020-12-03] MEDS ORDERED: ACETAMINOPHEN 325 MG TABLET (FP) PO PRN (13:49)
[2020-12-03] MEDS ORDERED: oxyCODONE HCL 5 MG TABLET PO PRN ×2 (13:53)
[2020-12-03] MEDS ORDERED: PROMETHAZINE HCL 25 MG/1 ML VIAL IVPUSH PRN (13:53)
[2020-12-03] MEDS ORDERED: LACTATED RINGERS SOLUTION 1,000 ML IV SCH (14:00)
[2020-12-03 16:34] VITALS: BP 122/72; PULSE 64; TEMP 97.2
== END 2020-12-03 16:34 | disposition home or self-care (01) ==
LOC: FASU 08:36
PROVIDERS: ATTEND Plastic Surgery
PROC: 0JB80ZZ Excision of Abdomen Subcutaneous Tissue and Fascia, Open Approach (ICD-10-PCS; 2020-12-03)
PROC: 0JX60ZB Transfer Chest Subcutaneous Tissue and Fascia with Skin and Subcutaneous Tissue, Open Approach (ICD-10-PCS; 2020-12-03)
PROC: 0HRV07Z Replacement of Bilateral Breast with Autologous Tissue Substitute, Open Approach (ICD-10-PCS; principal; 2020-12-03 12:27)
DX: M95.4 Acquired deformity of chest and rib (principal); Z90.13 Acquired absence of bilateral breasts and nipples; Z85.831 Personal history of malignant neoplasm of soft tissue; T85.41XA Breakdown (mechanical) of breast prosthesis and implant, initial encounter; Y83.8 Other surgical procedures as the cause of abnormal reaction of the patient, or of later complication, without mention of misadventure at the time of the procedure; Y92.9 Unspecified place or not applicable
CPT/HCPCS: 82962; 84703; 94760